=== PATIENT | male | born 1955 | race Two or more races ===

== ENCOUNTER 2023-12-31 12:43 | Inpatient (IN) | payer OTHER ==
[~2023-12-31] VITALS: Ht 172.7 cm; Wt 71.8 kg
[2023-12-31 14:17] LABS: Basophils # (auto) 0 10 ^3/uL (0-0.2); Basophils % (auto) 0.5 % (0.0-2.0); Eosinophils # (auto) 0.2 10 ^3/uL (0-0.8); Eosinophils % (auto) 2.3 % (0.0-7.0); Hematocrit 36.9 % (41.0-53.0); Hemoglobin 12.4 g/dL (13.5-17.5); Lymphocytes # (auto) 1.9 10 ^3/uL (0.4-5.4); Lymphocytes % (auto) 23.3 % (10.0-50.0); Mean Corpuscular Hemoglobin 30.5 pg (28.0-32.0); Mean Corpuscular Hgb Conc. 33.5 g/dL (32.0-36.0); Monocytes # (auto) 0.9 10 ^3/uL (0-1.3); Monocytes % (auto) 11.4 % (0.0-12.0); Neutrophils # (auto) 5.2 10 ^3/uL (1.6-8.6); Neutrophils % (auto) 62.5 % (37.0-80.0); Nucleated Red Blood Cells % 0.1 %; Platelet Count (auto) 463 10^3/uL (140-450); Red Blood Cells 4.06 10^6/uL (4.5-5.90); Red Cell Distribution Width 15.8 % (11.8-14.3); White Blood Cell 8.3 10^3/uL (4.4-10.8)
[2023-12-31 14:36] LABS: Alanine Aminotransferase 15 U/L (7-40); Albumin 3.6 g/dL (3.2-4.8); Alkaline Phosphatase 58 U/L (46-116); Anion Gap 7 (5-15); Aspartate Aminotransferase 28 U/L (13-40); BUN/Creatinine Ratio 13.3 (10.0-20.0); Bilirubin, Total 0.2 mg/dL (0.2-1.0); Blood Urea Nitrogen 12 mg/dL (9-23); Calcium 9.2 mg/dL (8.7-10.4); Carbon Dioxide 25 mmol/L (20-31); Chloride 107 mmol/L (98-107); Glucose 104 mg/dL (74-106); Potassium 3.7 mmol/L (3.5-5.1); Sodium 139 mmol/L (136-145)
[2023-12-31 14:42] LABS: Lactic Acid w/Reflex 2.3 mmol/L (0.4-2.0)
[2023-12-31] MEDS: SODIUM CHLORIDE 0.9% 1,000 ML IV ONE ×2 (14:42→16:42)
[2023-12-31] MEDS: cefTRIAXone 1GM/50ML D5W 50 ML IV ONE (14:43)
[2023-12-31] MEDS: CLINDAMYCIN 600MG IV 50 ML IV ONE (15:42)
[2023-12-31] MEDS ORDERED: MORPHINE SULFATE INJ 2 MG/ml SYRG IV PRN (18:30)
[2023-12-31] MEDS ORDERED: DOCUSATE SOD 100 MG CAP PO PRN (18:30)
[2023-12-31] MEDS ORDERED: ONDANSETRON HCL 4 MG/2 ML VIAL IV PRN (18:30)
[2023-12-31] MEDS ORDERED: HYDROcodone-ACET 5/325MG TAB PO PRN (18:30)
[2023-12-31] MEDS ORDERED: NITROGLYCERIN 0.4 MG SL TAB SL PRN (18:30)
[2023-12-31 18:35] LABS: Urine Bacteria None Seen /hpf (None Seen)
[2023-12-31 18:43] LABS: Urine Blood Negative /uL (Negative); Urine Clarity Clear (Clear); Urine Color Light-Yellow (Yellow); Urine Protein, UAD Negative (Negative); Urine Specific Gravity 1.018 (1.001-1.035); Urine Urobilinogen Normal (Negative); Urine WBC <1 /hpf (0 - 3); Urine pH 7.5 (5.0-9.0)
[2023-12-31 19:00] LABS: Blood Alcohol < 3.0 mg/dL (<10); Triglycerides 96 mg/dL (< 150)
[2023-12-31 19:01] LABS: LDL Cholesterol 84 mg/dL (< 100)
[2023-12-31 19:02] LABS: Cholesterol 153 mg/dL (< 200); HDL Cholesterol 55 mg/dL (40-59)
[2023-12-31 19:04] LABS: Amphetamine Screen, Urine Neg (NEGATIVE); Barbiturate Scree,Urine Neg (NEGATIVE); Benzodiazephine Screen, Urine Neg (NEGATIVE); Cocaine Screen, Urine Neg (NEGATIVE)
[2023-12-31 19:05] LABS: Cannabinoid Screen, Urine Pos (NEGATIVE); Opiate Scree,Urine Pos (NEGATIVE); Phencyclidine Screen, Urine Neg (NEGATIVE)
[2023-12-31] MEDS ORDERED: hydrALAZINE HCL 20 MG/ML VL IV PRN (22:30)
[2023-12-31] MEDS: LORazepam 2MG/ML-1ML VIAL IV PRN (22:45)
[2023-12-31] MEDS: GABAPENTIN 100 MG CAP PO SCH (22:45)
[2024-01-01 01:40] VITALS: BP 147/85; PULSE 69; RESP 19; TEMP 97.6; O2SAT 99
[2024-01-01] MEDS: ASCORBIC ACID 500 MG TAB PO SCH (01:40)
[2024-01-01] MEDS: PIPERACILLIN-TAZOB 3.375GM 100 ML IV SCH (01:50)
[2024-01-01 04:55] VITALS: BP 123/68; PULSE 58; RESP 18; TEMP 98; O2SAT 98
[2024-01-01 09:00] VITALS: BP 146/77; PULSE 72; RESP 16; TEMP 98.4; O2SAT 98
[2024-01-01] MEDS: ENOXAPARIN SOD 40 MG/0.4 ML SYRINGE SC SCH (09:26)
[2024-01-01] MEDS: ZINC SULFATE 220mg CAP or TAB PO SCH (09:26)
[2024-01-01] MEDS: MULTIPLE VITAMIN TAB PO SCH (09:26)
[2024-01-01 10:40] LABS: Basophils # (auto) 0.1 10 ^3/uL (0-0.2); Basophils % (auto) 0.7 % (0.0-2.0); Eosinophils # (auto) 0.1 10 ^3/uL (0-0.8); Eosinophils % (auto) 0.7 % (0.0-7.0); Hematocrit 39.4 % (41.0-53.0); Hemoglobin 13.3 g/dL (13.5-17.5); Lymphocytes # (auto) 1.2 10 ^3/uL (0.4-5.4); Lymphocytes % (auto) 15.6 % (10.0-50.0); Mean Corpuscular Hemoglobin 29.9 pg (28.0-32.0); Mean Corpuscular Hgb Conc. 33.7 g/dL (32.0-36.0); Mean Corpuscular Volume 88.7 fL (80.0-100.0); Monocytes # (auto) 0.6 10 ^3/uL (0-1.3); Monocytes % (auto) 7.6 % (0.0-12.0); Neutrophils # (auto) 5.9 10 ^3/uL (1.6-8.6); Neutrophils % (auto) 75.4 % (37.0-80.0); Nucleated Red Blood Cells % 0.1 %; Platelet Count (auto) 499 10^3/uL (140-450); Red Blood Cells 4.44 10^6/uL (4.5-5.90); Red Cell Distribution Width 15.5 % (11.8-14.3); White Blood Cell 7.8 10^3/uL (4.4-10.8)
[2024-01-01 10:51] LABS: Alanine Aminotransferase 16 U/L (7-40); Albumin 3.7 g/dL (3.2-4.8); Alkaline Phosphatase 56 U/L (46-116); Anion Gap 6 (5-15); Aspartate Aminotransferase 28 U/L (13-40); BUN/Creatinine Ratio 10.2 (10.0-20.0); Bilirubin, Total 0.4 mg/dL (0.2-1.0); Blood Urea Nitrogen 9 mg/dL (9-23); Calcium 9.7 mg/dL (8.7-10.4); Carbon Dioxide 28 mmol/L (20-31); Chloride 105 mmol/L (98-107); Glucose 94 mg/dL (74-106); Sodium 139 mmol/L (136-145); Total Protein 8.1 g/dL (5.7-8.2)
== END 2024-01-01 11:20 | disposition left against medical advice (07) | DRG 720 ==
LOC: ER 12:43 → TELE 18:30 → TELE-E-ADS 18:34
PROVIDERS: ADMIT Nurse Practitioner; ATTEND Nurse Practitioner
DX: A41.9 Sepsis, unspecified organism (principal); E87.20 Acidosis, unspecified; Z53.29 Procedure and treatment not carried out because of patient's decision for other reasons; F17.210 Nicotine dependence, cigarettes, uncomplicated; L02.414 Cutaneous abscess of left upper limb; L02.31 Cutaneous abscess of buttock; L03.114 Cellulitis of left upper limb; F15.90 Other stimulant use, unspecified, uncomplicated; I11.0 Hypertensive heart disease with heart failure; Z79.899 Other long term (current) drug therapy
CPT/HCPCS: 36415; 80053; 80061; 80307; 80320; 81001; 83036; 83605; 83880; 85025; 87040; 99291; G0378; J2543; J3490